=== PATIENT | female | born 1980 | race African-American/Black ===

== ENCOUNTER 2019-04-18 16:08 | Emergency (ER) | payer MEDICAID ==
[~2019-04-18] VITALS: Ht 165.1 cm; Wt 93.0 kg
[2019-04-18 16:38] VITALS: BP 141/76
== END 2019-04-18 18:23 | disposition left against medical advice (07) ==
LOC: ER 16:08
DX: Z53.21 Procedure and treatment not carried out due to patient leaving prior to being seen by health care provider (principal)

== ENCOUNTER 2019-04-18 18:40 | Emergency (ER) | payer MEDICAID ==
[~2019-04-18] VITALS: Ht 165.1 cm; Wt 93.0 kg
[2019-04-18 19:14] VITALS: BP 136/73
== END 2019-04-18 21:44 | disposition left against medical advice (07) ==
LOC: ER 18:40
DX: Z53.21 Procedure and treatment not carried out due to patient leaving prior to being seen by health care provider (principal)

== ENCOUNTER 2020-07-11 20:58 | Emergency (ER) | payer MEDICAID ==
[~2020-07-11] VITALS: Ht 165.1 cm; Wt 94.0 kg
[2020-07-11 21:03] VITALS: BP 140/71
[2020-07-12] MEDS ORDERED: FLUORESCEIN SODIUM 1MG/STRIP RIGHTEYE ONE (01:15)
[2020-07-12] MEDS ORDERED: TETRACAINE 0.5% OPHTH DROPS 4ML RIGHTEYE ONE (01:15)
== END 2020-07-12 01:48 | disposition home or self-care (01) ==
LOC: ER 20:58
DX: H10.89 Other conjunctivitis (principal); R03.0 Elevated blood-pressure reading, without diagnosis of hypertension
CPT/HCPCS: 99283

== ENCOUNTER 2022-07-31 14:38 | Emergency (ER) | payer MEDICAID ==
[~2022-07-31] VITALS: Ht 170.2 cm; Wt 95.0 kg
[2022-07-31 17:48] LABS: BG BASE EXCESS -1.2 mmol/L (-2.0-2.0); BG CARBOXYHEMOGLOBIN 1.6 % (0.5-1.5); BG DEOXYHEMOGLOBIN 2.3 % (0.0-5.0); BG FRACTION INSPIRED OXYGEN 21; BG HCO3 ACT 22.9 mmol/L (22.0-26.0); BG METHEMOGLOBIN 0.9 % (0.0-1.5); BG OXYGEN SATURATION 97.6 % (92.0-98.5); BG OXYHEMOGLOBIN 95.2 % (94.0-97.0); BG PCO2 35.4 mmHg (35.0-45.0); BG PH 7.428 (7.350-7.450); BG SAMPLE SITE RIGHT BRACHIAL; BG TOTAL HEMOGLOBIN 8.7 g/dL (12.0-18.0); BG VENT MODE ROOM AIR
[2022-07-31 20:15] VITALS: BP 150/68
== END 2022-07-31 20:15 | disposition home or self-care (01) ==
LOC: ER 14:42
DX: T59.7X1A Toxic effect of carbon dioxide, accidental (unintentional), initial encounter (principal); R07.2 Precordial pain; R42 Dizziness and giddiness; R03.0 Elevated blood-pressure reading, without diagnosis of hypertension; Y93.89 Activity, other specified; G40.909 Epilepsy, unspecified, not intractable, without status epilepticus; Y92.038 Other place in apartment as the place of occurrence of the external cause
CPT/HCPCS: 36600; 71045; 82375; 82805; 93005; 99285; Z7610